=== PATIENT | male | born 1945 | race Caucasian/White ===

== ENCOUNTER 2022-02-01 10:45 | Outpatient (CLI) | payer MEDICARE | END 2022-02-01 10:46 | disposition home or self-care (01) | LOC: LABBT 10:45 | PROVIDERS: ATTEND Ophthalmology Retina Specialist | DX: E85.81 Light chain (AL) amyloidosis (principal); Z20.822 Contact with and (suspected) exposure to COVID-19 | CPT/HCPCS: 83883; 84155; 84165; 85025; 87811 ==

== ENCOUNTER 2022-02-03 06:09 | Day surgery (SDC) | payer MEDICARE, OTHER ==
[2022-02-02 10:42] VITALS: BMI 21.9
[~2022-02-03 06:09] MED LIST: EPINEPHrine 0.3 MG in Ophthalmic Irrigation Solution 500 ML IRR SCH
[2022-02-03] MEDS ORDERED: Phenylephrine 2.5% Ophth Soln 5 ML BOT ONE (06:28)
[2022-02-03] MEDS ORDERED: Cyclopentolate 1% Opth Drop 2 ML BOT ONE (06:28)
[2022-02-03] MEDS ORDERED: Midazolam HCl 2 mg/2 ml Vial ONE (06:59)
[2022-02-03] MEDS ORDERED: fentaNYL Citrate/PF 100 MCG/2 ML SYRINGE ONE (06:59)
[2022-02-03] MEDS ORDERED: PROPOFOL 20 ML ONE (06:59)
[2022-02-03] MEDS ORDERED: CEFAZOLIN 1 GM VIAL ONE (07:04)
[2022-02-03] MEDS ORDERED: Lidocaine 1% PF 5 ML VIAL ONE (07:04)
[2022-02-03] MEDS ORDERED: Triamcinolone 40 MG/ML VIAL ONE (07:04)
[2022-02-03] MEDS ORDERED: Lidocaine 4% PF 5 ML AMP ONE (07:04)
[2022-02-03] MEDS ORDERED: Bupivacaine 0.75% 10 ML VIAL ONE (07:04)
== END 2022-02-03 08:15 | disposition home or self-care (01) ==
LOC: SDC 06:09
PROVIDERS: ATTEND Ophthalmology Retina Specialist
PROC: 08T53ZZ Resection of Left Vitreous, Percutaneous Approach (ICD-10-PCS; principal; 2022-02-03)
PROC: 08NF3ZZ Release Left Retina, Percutaneous Approach (ICD-10-PCS; 2022-02-03)
DX: H43.312 Vitreous membranes and strands, left eye (principal); Z79.899 Other long term (current) drug therapy; Z88.6 Allergy status to analgesic agent; Z88.7 Allergy status to serum and vaccine; Z88.8 Allergy status to other drugs, medicaments and biological substances
CPT/HCPCS: J0171; J0690; J2250; J2704; J3301; J3490